=== PATIENT | female | born 1950 | race Caucasian/White ===

== ENCOUNTER → 2017-01-31 | Outpatient (CLI) | payer MEDICARE, BC ==
[~2017-01-31] MED LIST: AMBIEN DPS5 MG PO; ATARAX-DPS10 MG PO; ATIVAN DPS2 MG/ML IV; BENADRYL-DPS50 MG PO; BENTYL-DPS10 MG PO; BENZONATATE200 MG PO; CARAFATE DPS1 GM PO; CIPRO DPS250 MG PO; COLACE-DPS100 MG PO; DUONEB DPS3 ML IH; ELAVIL-DPS50 MG PO; FLAGYL-DPS500 MG PO; FOSAMAX70 MG PO; HEPARIN10 UNITS/M IV; HEPARIN5000 UNITS SQ; HYDROXYZINE HCL10 MG PO; KCL IV; MAALOX DPS30 ML PO; MERREM500 MG IV; MORPHINE2 MG/ML IV; NITROSTAT0.4 MG SL; NORCO 5-325 TA1 EACH PO; NORMAL SALINE F30 ML IV; NORMAL SALINE FL5 ML IV; NORMAL SALINE IV; NUBAIN IV; OXY-CONTIN10 MG PO; PEPCID DPS20 MG PO; PERCOCET 5-3251 EACH PO; PHENERGAN DPS25 MG PO; PHENERGAN25 MG/1 M1 IV; PHENERGAN6.25 MG/5 IV; PROCRIT40000 UNIT SQ; PROTONIX IV40 MG IV; PROTONIX40 MG PO; REGLAN DPS5 MG PO; REGLAN INJ10 MG/2 ML IV; REGLAN10 MG IV; ROCALTROL DP0.25 MCG PO; SOD BICARB TAB650 MG PO; SODIUM BIC50 MEQ/50 IV; SYNTHROID DP0.075 MG PO; SYNTHROID112 MCG PO; SYNTHROID75 MCG PO; TYLENOL DPS325 MG PO; ULTRAM DPS50 MG PO; VITAMIN D-32000 UNI1 PO; ZOFRAN DPS4 MG/2 ML IV; ZOFRAN ODT4 MG PO; ZOFRAN4 MG PO; [UNRECOGNIZED DRUG - OTHER] IV
== END | disposition home or self-care (01) ==
LOC: PTH.S 01-29 16:00
DX: R80.9 Proteinuria, unspecified (principal)

== ENCOUNTER 2017-03-07 14:15 | Emergency (ER) | payer MEDICARE, BC ==
[~2017-03-07 14:15] MED LIST changes: -ATIVAN DPS2 MG/ML IV; -BENADRYL-DPS50 MG PO; -BENTYL-DPS10 MG PO; -COLACE-DPS100 MG PO; -DUONEB DPS3 ML IH; -HEPARIN10 UNITS/M IV; -HEPARIN5000 UNITS SQ; -HYDROXYZINE HCL10 MG PO; -KCL IV; -MAALOX DPS30 ML PO; -MERREM500 MG IV; -MORPHINE2 MG/ML IV; -NITROSTAT0.4 MG SL; -NORMAL SALINE F30 ML IV; -NORMAL SALINE FL5 ML IV; -NORMAL SALINE IV; -NUBAIN IV; -OXY-CONTIN10 MG PO; -PEPCID DPS20 MG PO; -PERCOCET 5-3251 EACH PO; -PHENERGAN DPS25 MG PO; -PHENERGAN25 MG/1 M1 IV; -PHENERGAN6.25 MG/5 IV; -PROCRIT40000 UNIT SQ; -PROTONIX IV40 MG IV; -REGLAN10 MG IV; -SODIUM BIC50 MEQ/50 IV; -SYNTHROID75 MCG PO; -ULTRAM DPS50 MG PO; -ZOFRAN DPS4 MG/2 ML IV; -ZOFRAN ODT4 MG PO
[2017-03-13] MEDS ORDERED: PEPCID DPS20 MG PO (11:43)
[2017-03-13] MEDS ORDERED: DUONEB DPS3 ML IH (11:44)
[2017-03-13] MEDS ORDERED: PROCRIT40000 UNIT SQ (11:45)
[2017-03-13] MEDS ORDERED: MERREM500 MG IV (11:46)
[2017-03-13] MEDS ORDERED: SODIUM BIC50 MEQ/50 IV (11:47)
[2017-03-13] MEDS ORDERED: BENADRYL-DPS50 MG PO (11:48)
[2017-03-13] MEDS ORDERED: PHENERGAN6.25 MG/5 IV (11:50)
[2017-03-13] MEDS ORDERED: MORPHINE2 MG/ML IV (11:52)
[2017-03-13] MEDS ORDERED: NORMAL SALINE F30 ML IV (11:52)
--- NOTE | 2017-03-20 18:03 | ER ---
ADMIT: 03/07/2017 RM/LOC: ER [facility] MR#: [id number] [address] [address] [place] [address] Emergency Room Report SEX: F AGE: 66 : 1950 DATE: 03/07/2017 ADDENDUM: Overall findings, the patient has anemia and has bronchitis. DISPOSITION: Told her to push fluids. Rest and follow up with Dr. Nixon if she worsens. EULALIO Cannon / Rony Andres MD / clem JOB #: [id number] CC: Gabriele Corea MD, Attending Physician Daniela Nixon MD, Family Physician
[2017-05-11] MEDS ORDERED: PROTONIX IV40 MG IV (14:46)
[2017-05-11] MEDS ORDERED: AMBIEN DPS5 MG PO (14:46)
[2017-05-11] MEDS ORDERED: NORMAL SALINE FL5 ML IV (14:47)
[2017-05-11] MEDS ORDERED: HEPARIN5000 UNITS SQ (14:47)
[2017-05-11] MEDS ORDERED: COLACE-DPS100 MG PO (14:48)
[2017-05-11] MEDS ORDERED: PERCOCET 5-3251 EACH PO (14:48)
[2017-05-11] MEDS ORDERED: MAALOX DPS30 ML PO (14:48)
[2017-05-11] MEDS ORDERED: TYLENOL DPS325 MG PO (14:49)
[2017-05-11] MEDS ORDERED: NUBAIN IV (14:49)
[2017-05-11] MEDS ORDERED: NITROSTAT0.4 MG SL (14:49)
[2017-05-11] MEDS ORDERED: NORMAL SALINE IV (14:51)
[2017-05-11] MEDS ORDERED: PHENERGAN25 MG/1 M1 IV (14:51)
[2017-05-11] MEDS ORDERED: ZOFRAN DPS4 MG/2 ML IV (14:51)
[2017-07-06] MEDS ORDERED: HEPARIN10 UNITS/M IV (10:03)
[2017-07-06] MEDS ORDERED: KCL IV (10:06)
[2017-07-06] MEDS ORDERED: ATIVAN DPS2 MG/ML IV (10:07)
[2017-07-06] MEDS ORDERED: REGLAN10 MG IV (10:10)
[2017-07-16] MEDS ORDERED: SYNTHROID75 MCG PO (08:42)
[2017-07-16] MEDS ORDERED: HYDROXYZINE HCL10 MG PO (08:44)
[2017-07-16] MEDS ORDERED: ROCALTROL DP0.25 MCG PO (08:44)
[2017-07-16] MEDS ORDERED: PHENERGAN DPS25 MG PO (08:45)
[2017-07-16] MEDS ORDERED: ULTRAM DPS50 MG PO (08:45)
[2017-07-16] MEDS ORDERED: BENZONATATE200 MG PO (08:45)
[2017-07-16] MEDS ORDERED: PROTONIX40 MG PO (08:45)
[2017-07-16] MEDS ORDERED: REGLAN DPS5 MG PO (08:46)
[2017-07-16] MEDS ORDERED: VITAMIN D-32000 UNI1 PO (08:46)
[2017-07-16] MEDS ORDERED: TYLENOL DPS325 MG PO (08:46)
[2017-07-16] MEDS ORDERED: COLACE-DPS100 MG PO (08:46)
[2017-07-16] MEDS ORDERED: OXY-CONTIN10 MG PO (08:47)
[2017-07-16] MEDS ORDERED: BENTYL-DPS10 MG PO (08:47)
[2017-07-16] MEDS ORDERED: ZOFRAN ODT4 MG PO (08:47)
== END 2017-03-07 16:20 | disposition home or self-care (01) ==
LOC: ER 14:15
DX: J40 Bronchitis, not specified as acute or chronic (principal); D64.9 Anemia, unspecified; E03.9 Hypothyroidism, unspecified; Z90.710 Acquired absence of both cervix and uterus; Z79.899 Other long term (current) drug therapy; Z88.0 Allergy status to penicillin; Z88.8 Allergy status to other drugs, medicaments and biological substances

== ENCOUNTER 2017-03-09 14:54 | Inpatient (IN) | payer MEDICARE, BC ==
[~2017-03-09] VITALS: Ht 154.9 cm; Wt 57.8 kg
[2017-03-13] MEDS ORDERED: PEPCID DPS20 MG PO (11:43)
[2017-03-13] MEDS ORDERED: DUONEB DPS3 ML IH (11:44)
[2017-03-13] MEDS ORDERED: PROCRIT40000 UNIT SQ (11:45)
[2017-03-13] MEDS ORDERED: MERREM500 MG IV (11:46)
[2017-03-13] MEDS ORDERED: SODIUM BIC50 MEQ/50 IV (11:47)
[2017-03-13] MEDS ORDERED: BENADRYL-DPS50 MG PO (11:48)
[2017-03-13] MEDS ORDERED: PHENERGAN6.25 MG/5 IV (11:50)
[2017-03-13] MEDS ORDERED: MORPHINE2 MG/ML IV (11:52)
[2017-03-13] MEDS ORDERED: NORMAL SALINE F30 ML IV (11:52)
--- NOTE | 2017-03-16 10:43 | CO ---
ADMIT: 03/09/2017 RM/LOC: 409 [facility] MR#: [id number] [address] [address] [place] [address] Consultation SEX: F AGE: 66 : 1950 DATE OF CONSULTATION: 03/10/2017 ATTENDING PHYSICIAN: Daniela Nixon CONSULTING PHYSICIAN: Per Wilcox MD REASON FOR CONSULTATION: Acute kidney injury on chronic kidney disease, stage 4. HISTORY OF PRESENT ILLNESS: The patient is a pleasant 66-year-old female, who has a history of chronic kidney disease stage 4. Baseline creatinine has been around 1.9 to 2.0. She is admitted to the hospital with sepsis, pancreatitis, and acute kidney injury. She reports feeling unwell for about the last couple of months. Initially, she had symptoms consistent with upper respiratory tract infection, but for the last few days, had nausea, vomiting, and decreased oral intake. She feels very weak. She was noted to have an acute kidney injury with a creatinine of around 3.4 when she came through the emergency room last night. She used to follow up with me, but reports that she is seeing Dr. Brooks in [place] and is following up with him according to her primary care's recommendations. Otherwise, she denies any urinary complaints. She feels somewhat better compared to yesterday. Denies any chest pain. Her breathing is somewhat labored. She feels very weak. Mood is not great. She has some symptoms of depression that includes insomnia, lack of appetite and energy. REVIEW OF SYSTEMS: A complete review of systems is negative in detail except as mentioned in history of present illness above. PAST MEDICAL HISTORY: 1. Hypertension. 2. Diverticulosis. 3. Diverticulitis. 4. Myelodysplastic disorder and anemia. 5. Migraines. 6. GERD. 7. Asthma. 8. Cholecystectomy. 9. Chronic kidney disease stage 4 with a baseline creatinine of around 1.9 to 2.0. 10.Carpal tunnel syndrome. 11.Tonsillectomy. 12.Adenoidectomy. 13.Hypothyroidism. ALLERGIES: PENICILLINS, IODINE. MEDICATIONS: Reviewed and addressed in the chart. SOCIAL HISTORY: Lives at home. No tobacco, alcohol, or recreational drug ADMIT: 03/09/2017 RM/LOC: 409 [facility] MR#: [id number] [address] [address] [place] [address] Consultation SEX: F AGE: 66 : 1950 use. FAMILY HISTORY: Mother has end-stage renal disease, on hemodialysis. PHYSICAL EXAMINATION: VITAL SIGNS: Temperature 98.5 Fahrenheit, pulse 81, blood pressure 99/50, saturating 97% on room air. GENERAL: She is ill appearing. HEENT: Head is nontraumatic and normocephalic. Pale conjunctivae. Dry mucosa. CHEST: Clear to auscultation. CVS: Regular rate and rhythm. S1 and S2 heard. No rubs, murmurs, or gallops. ABDOMEN: Soft. She has tenderness in the epigastric area. EXTREMITIES: No edema. NEUROLOGIC: She is oriented. Able to move all her extremities. LABORATORY DATA: Reviewed. BMP with sodium 137, potassium 3.6, CO2 of 8, creatinine 2.6, it was elevated to 3.4 yesterday. Hemoglobin is 8.7. Calcium 6.8, albumin 3.0. Urinalysis with 1+ protein, trace blood, negative leukocyte esterase. She did have hyaline and granular casts in her urine. ASSESSMENT AND PLAN: 1. Acute kidney injury on chronic kidney disease, stage 4-this is secondary to ischemic acute tubular necrosis. 2. Metabolic acidosis-at least in part with her decreased sodium bicarbonate. She could have a superimposed respiratory alkalosis as well. I will change her to IV bicarbonate containing fluids for the time being and check a venous blood gas in the morning. 3. Renal osteodystrophy-continue calcitriol 0.25 mcg a day. 4. Anemia/myelodysplastic syndrome-she is being followed by Hematology, and it appears they been consulted already. 5. I will follow this patient for her acute renal needs during this hospitalization, and hand over her care to Dr. Brooks up on dismissal. Please do not hesitate to contact me with any questions. Per Wilcox MD/ clem JOB #: [id number] CC: Daniela Nixon, Attending Physician Daniela Nixon, Family Physician
--- NOTE | 2017-03-20 17:58 | ER ---
ADMIT: 03/09/2017 RM/LOC: 409 [facility] MR#: [id number] [address] [address] [place] [address] Emergency Room Report SEX: F AGE: 66 : 1950 CORRECTED: 03/11/2017 0533 DJS DATE: 03/09/2017 CHIEF COMPLAINT: Vomiting. HISTORY OF PRESENT ILLNESS: This is a pleasant 66-year-old female, who presents to the ER complaining of nausea and vomiting. States she was seen by Dr. Nixon last week primarily for a cough. States this is not improving, was into the ER again this past weekend with similar complaints of cough. She did have some basic labs drawn as well as a chest x-ray, which were unremarkable. States today she has been experiencing increased nausea and vomiting and did have an episode of diarrhea while in the department today. Admits to fever as well as a headache. Thinks the headache is likely secondary to her migraine headaches. Denies any blood in her vomit. Does have some lower abdominal pain. PAST MEDICAL HISTORY: Significant for pancreatitis, hypertension, myelodysplastic disorder, osteoarthritis, anemia, diverticulitis, hypothyroidism, migraine headache disorder, chronic kidney disease, GERD, and secondary hypoparathyroidism. PAST SURGICAL HISTORY: Cholecystectomy, tonsillectomy and adenoidectomy, tubal ligation, colonoscopy. MEDICATIONS: She is on an extensive list of medications. Please see the chart for complete list. ALLERGIES: TO PENICILLIN AND IODINE. SOCIAL HISTORY: She is a nonsmoker. Denies any drug or alcohol use. COURSE IN THE EMERGENCY ROOM: The patient was seen and examined. PHYSICAL EXAMINATION: VITAL SIGNS: She is afebrile. GENERAL: In no acute distress. NECK: Soft and supple. RESPIRATORY: Clear bilaterally. No wheezes, rhonchi, or rales. HEART: Regular rate and rhythm. No murmurs, gallops, or rubs. ABDOMEN: She does have some lower abdominal tenderness. No rebound or guarding. No McBurney's point tenderness. SKIN: Warm and dry. No rash. EXTREMITIES: No pedal edema. NEURO: She is alert, oriented, appropriate with exam. Did do sepsis routine on her today as well as getting a lipase significant for white count 13.6, hemoglobin 11.6, hematocrit 35.8, and platelets 126. Sodium 137, potassium 4.2, CO2 of 9, BUN 52, glucose 136, creatinine 3.4, phosphorus 6.2, lipase 512, mag 3.2, and calcium 8.3. CK 17, cardiac enzymes negative. ADMIT: 03/09/2017 RM/LOC: 409 [facility] MR#: [id number] [address] [place] [id number] [facility] [place] [address] Emergency Room Report SEX: F AGE: 66 : 1950 Lactic acid 1.2. Procalcitonin greater than 136. PT 10.5, INR 1.01, and PTT 35.5. O positive blood type. Urine shows 1+ protein, trace blood, hyaline and granular casting. No signs of acute infection. EKG shows sinus tachycardia, rate 101, no ST-T or Q wave abnormalities. Given her procalcitonin, elevated white count and tachycardia, I did give her first dose of antibiotic in department tonight vancomycin and meropenem. I did phone Dr. Paez, made him aware of the patient. I spoke with Dr. Pinon, the resident on-call for him as well. The patient will be admitted for further evaluation and management at this time. IMPRESSION: 1. Pancreatitis. 2. Chronic kidney disease. 3. Abdominal pain. 4. Nausea and vomiting. 5. Diarrhea. 6. Myelodysplastic disorder. 7. History of diverticulitis. 8. Secondary hypoparathyroidism. 9. Gastroesophageal reflux disease. DISPOSITION: The patient will be admitted by Dr. Paez for Dr. Nixon for further evaluation and management. She was discharged to the floor in guarded condition. EULALIO Bryant / Juliocesar Norman MD / norbertol JOB #: [id number] CC: Daniela Nixon MD, Attending Physician Daniela Nixon MD, Family Physician CORRECTED: 03/11/2017 0533 RANDI
--- NOTE | 2017-04-05 07:27 | HP ---
ADMIT: 03/09/2017 RM/LOC: 409 [facility] MR#: [id number] [address] [address] [place] [address] History and Physical SEX: F AGE: 66 : 1950 DATE OF SERVICE: CHIEF COMPLAINT: Nausea and vomiting. HISTORY OF PRESENT ILLNESS: This is a 66-year-old female with a complicated medical history, which includes stage 4 kidney disease, myelodysplastic syndrome, and a history of pancreatitis. She states that she has been battling a cough for about the last two months. However, over the last few days, she suffered some nausea, vomiting, and decreased p.o. intake. She was actually recently in the emergency room over the weekend. Had labs drawn which were about at her baseline. Creatinine of 2.8 up from her baseline of 2, but nothing significant enough to warrant admission into the hospital. She now returns and workup in the ER reveals a bicarb of 9, a creatinine of 3.4, lipase of 512, and procalcitonin greater than 136. She denies any recent fever, but does note that she has hardly eaten anything over the last two days. She even tried to eat some Jell-O that she was throwing up. She states that for chronic kidney disease, she follows with a new heavy duty press operator in [place]. She is being hospitalized for sepsis, pancreatitis, and acute kidney injury superimposed on chronic kidney disease. PAST MEDICAL HISTORY: CKD stage 4, esophageal reflux, secondary hypoparathyroidism, hypothyroidism, history of metabolic acidosis, chronic migraine, myelodysplastic syndrome, chronic anemia, generalized osteoarthritis, osteoporosis, vitamin D and B12 deficiency. PAST SURGICAL HISTORY: Cholecystectomy, tonsillectomy and adenoidectomy, tubal ligation, and colonoscopy in 2009. ALLERGIES: INCLUDE PENICILLIN AND IODINE. FAMILY HISTORY: Father had heart disease and heart attack. Mother with kidney disease, diabetes, asthma, and glaucoma. Sister had breast cancer. SOCIAL HISTORY: The patient has never smoked. Denies alcohol or drug abuse. Lives with her . Does not work outside the home. REVIEW OF SYSTEMS: GENERAL: The patient states that she has been a little under the weather with her cough, but more significantly with nausea, vomiting, and decreased p.o. intake over the last few days. She states she is very thirsty, that her throat is dry, but she is currently denying any headache or reflux symptoms. Denies chest pain, shortness of breath. No dizziness. Also endorses some chronic pain in her neck, shoulders, hips, and knees. PHYSICAL EXAMINATION: VITAL SIGNS: Temp 97.8, pulse 93, respirations 20, blood pressure 126/51, and O2 saturation 100% on room air. GENERAL: The patient is awake, alert, oriented, lying in bed, conversational. HEENT: Her lips and mouth are dry. She has poor dentition. Mucous membranes are dry. ADMIT: 03/09/2017 RM/LOC: 409 [facility] MR#: [id number] [address] [place] [id number] [facility] [place] [address] History and Physical SEX: F AGE: 66 : 1950 NECK: No JVD. Supple. No lymphadenopathy. HEART: Regular rhythm and rate. No murmurs, rubs, or gallops. LUNGS: Clear to auscultation bilaterally. ABDOMEN: Soft, but tender to palpation in the epigastric area. No obvious splenomegaly. Normoactive bowel sounds. EXTREMITIES: Show no edema in the lower limbs. She does have some increased skin turgor but normal cap refill. LABS AND X-RAY: White count is 13.6, hemoglobin 11.6, and platelets are 126. CMP shows a chloride of 111, bicarb of 9, BUN of 52, creatinine 3.4 up from baseline of 2, phosphorus is elevated at 6.2, lipase is elevated at 512, magnesium elevated at 3.2. Her anion gap is 21. CK-MB and troponin are normal. Lactic acid is 1.2, with a procalcitonin of greater than 136. PT and INR are normal. UA is hazy with 1+ protein and trace blood, but no leuk esterase or white blood cells. She does have hyaline and granular casts. Her CT of the abdomen and pelvis is essentially read out as negative with a stable density in the distal common duct and a stable nodule in the superior pole of the right kidney, but no other acute findings. ASSESSMENT: 1. Sepsis. 2. Acute pancreatitis. 3. Acute kidney injury on chronic kidney disease, stage 4. 4. History of metabolic acidosis, currently with a bicarb of 9. 5. Myelodysplastic syndrome with chronic anemia. 6. Osteoarthritis. 7. Gastroesophageal reflux disease. 8. Hypothyroidism. PLAN: The patient was started on Vanc and Merrem in the emergency room for her sepsis and pancreatitis. There is no other clear etiology, so we will continue her on these antibiotics. She was given a total of 1 L of IV fluid along with the fluid in her antibiotics. We will continue with gentle fluid repletion at 150 mL normal saline an hour. We appreciate a Nephrology consult for fluid management in this complicated patient with AKA on CKD in the setting of sepsis and pancreatitis. We will also recheck her labs, lactic acid, and procalcitonin in the morning. She does have p.r.n. pain medication and nausea medication should she need it. Glenn Pinon MD Resident / Daniela Nixon MD / norbertol JOB #: [id number] CC: Daniela Nixon, Attending Physician Daniela Nixon, Family Physician
--- NOTE | 2017-04-05 07:27 | DS ---
ADMIT: 03/09/2017 RM/LOC: 409 [facility] MR#: [id number] [address] [address] [place] [address] Discharge Summary SEX: F AGE: 66 : 1950 ADMISSION DATE: 03/09/2017 DISCHARGE DATE: 03/12/2017 CONSULTATIONS: 1. Per Wilcox MD with Nephrology. 2. Mary Ace MD with Oncology. DISCHARGE DIAGNOSES: 1. Sepsis due to pancreatitis. 2. Common bile duct dilation and 3 mm density. 3. Acute kidney injury on CKD (chronic kidney disease) grade 4. 4. Metabolic acidosis. 5. Myelodysplastic syndrome, pancytopenia with anemia. 6. Hypokalemia. 7. Hypothyroidism. BRIEF HISTORY OF PRESENT ILLNESS: The patient is a 66-year-old female with complicated medical history including stage IV CKD, mild dysplastic syndrome and a history of pancreatitis. Over the last few days, she has had nausea, vomiting, abdominal pain, and decreased p.o. intake. She had presented to the emergency room a few days ago with no major changes in her baseline labs other than a creatinine of 2.8, up from her baseline of 2 and was sent home. She returns again today with the same complaints but worse and continued anorexia due to her nausea and vomiting. Labs on this ER visit revealed bicarb of 9, creatinine of 3.4, lipase of 512, procalcitonin of greater than 136. She had been in the emergency room a few months ago with a very similar presentation. CT scan in the emergency room shows no acute findings but does again show a 3 mm density in the common bile duct that is stable from previous imaging. She is admitted for sepsis, pancreatitis, acute kidney injury on CKD as well as myelodysplastic syndrome, hypothyroidism and her other chronic illnesses. She was started on Vanco and Merrem due to penicillin allergy, in the emergency room, gently fluid rehydrated given her chronic kidney disease and started on pain and nausea medications. HOSPITAL COURSE: Nephrology who is familiar with the patient, was consulted for help in fluid management in this patient. They adjusted her fluids to half-normal saline plus bicarb and continued to follow her creatinine which steadily declined back to baseline throughout hospitalization. Oncology was consulted due to her history of myelodysplastic syndrome. Her hemoglobin did trend down into the low 7s, so she was transfused 1 unit of packed red blood cells with an appropriate response. She is also on Procrit that is managed by them and that was administered during this hospitalization as well. Over the course of two days, the patient's nausea and abdominal pain were not significantly improving and the source of the pancreatitis was thought to be due to this previously uninvestigated 3 mm density in the common bile duct. It was determined that she likely needed an ERCP, however this facility does not offer gastroenterology services and the patient required transfer to a secondary hospital for higher level of care and Gastroenterology Services for possibly ERCP. On the , Dr. Son at [facility] accepted transfer ADMIT: 03/09/2017 RM/LOC: 409 [facility] MR#: [id number] [address] [place] [id number] [facility] [place] [address] Discharge Summary SEX: F AGE: 66 : 1950 of the patient for possible ERCP. The patient was transferred in stable condition. Of note, vancomycin was stopped before transfer. DISCHARGE MEDICATIONS: 1. Atarax 10 mg nightly. 2. Pepcid 20 mg daily. 3. Protonix 40 mg daily. 4. Rocaltrol 0.25 mcg daily. 5. Synthroid 75 mcg daily. 6. DuoNebs p.r.n. 7. Procrit weekly. 8. Merrem 500 mg q.12. 9. Half normal saline with sodium bicarb. 10.Benadryl 50 mg at bedtime p.r.n. 11.[place] 5/325 q.6 hours p.r.n. 12.Tessalon Perles 200 mg q.8h p.r.n. 13.Morphine 2 mg q.2 hours p.r.n. as well as p.r.n. Zofran, Reglan and Phenergan for nausea. DISCHARGE INSTRUCTIONS: The patient was discharged on n.p.o. diet. She was on room air oxygen. She is to follow up with Dr. Nixon when she returns from her hospital stay at [facility]. Glenn Pinon MD Resident / Daniela Nixon MD / vdg JOB #: [id number] CC: Daniela Nixon MD, Attending Physician Daniela Nixon MD, Family Physician
[2017-05-11] MEDS ORDERED: PROTONIX IV40 MG IV (14:46)
[2017-05-11] MEDS ORDERED: AMBIEN DPS5 MG PO (14:46)
[2017-05-11] MEDS ORDERED: HEPARIN5000 UNITS SQ (14:47)
[2017-05-11] MEDS ORDERED: NORMAL SALINE FL5 ML IV (14:47)
[2017-05-11] MEDS ORDERED: MAALOX DPS30 ML PO (14:48)
[2017-05-11] MEDS ORDERED: PERCOCET 5-3251 EACH PO (14:48)
[2017-05-11] MEDS ORDERED: COLACE-DPS100 MG PO (14:48)
[2017-05-11] MEDS ORDERED: NITROSTAT0.4 MG SL (14:49)
[2017-05-11] MEDS ORDERED: TYLENOL DPS325 MG PO (14:49)
[2017-05-11] MEDS ORDERED: NUBAIN IV (14:49)
[2017-05-11] MEDS ORDERED: NORMAL SALINE IV (14:51)
[2017-05-11] MEDS ORDERED: ZOFRAN DPS4 MG/2 ML IV (14:51)
[2017-05-11] MEDS ORDERED: PHENERGAN25 MG/1 M1 IV (14:51)
[2017-07-06] MEDS ORDERED: HEPARIN10 UNITS/M IV (10:03)
[2017-07-06] MEDS ORDERED: KCL IV (10:06)
[2017-07-06] MEDS ORDERED: ATIVAN DPS2 MG/ML IV (10:07)
[2017-07-06] MEDS ORDERED: REGLAN10 MG IV (10:10)
[2017-07-16] MEDS ORDERED: SYNTHROID75 MCG PO (08:42)
[2017-07-16] MEDS ORDERED: HYDROXYZINE HCL10 MG PO (08:44)
[2017-07-16] MEDS ORDERED: ROCALTROL DP0.25 MCG PO (08:44)
[2017-07-16] MEDS ORDERED: BENZONATATE200 MG PO (08:45)
[2017-07-16] MEDS ORDERED: ULTRAM DPS50 MG PO (08:45)
[2017-07-16] MEDS ORDERED: PHENERGAN DPS25 MG PO (08:45)
[2017-07-16] MEDS ORDERED: PROTONIX40 MG PO (08:45)
[2017-07-16] MEDS ORDERED: TYLENOL DPS325 MG PO (08:46)
[2017-07-16] MEDS ORDERED: COLACE-DPS100 MG PO (08:46)
[2017-07-16] MEDS ORDERED: REGLAN DPS5 MG PO (08:46)
[2017-07-16] MEDS ORDERED: VITAMIN D-32000 UNI1 PO (08:46)
[2017-07-16] MEDS ORDERED: OXY-CONTIN10 MG PO (08:47)
[2017-07-16] MEDS ORDERED: ZOFRAN ODT4 MG PO (08:47)
[2017-07-16] MEDS ORDERED: BENTYL-DPS10 MG PO (08:47)
== END 2017-03-12 12:34 | disposition short-term general hospital (02) | DRG 871 ==
LOC: ER 14:54 → 4PCU 19:17
PROVIDERS: ADMIT Family Medicine
PROC: 30233N1 Transfusion of Nonautologous Red Blood Cells into Peripheral Vein, Percutaneous Approach (ICD-10-PCS; principal; 2017-03-11)
DX: A41.9 Sepsis, unspecified organism (principal); K85.90 Acute pancreatitis without necrosis or infection, unspecified; N17.9 Acute kidney failure, unspecified; E87.2 Acidosis; D61.818 Other pancytopenia; N18.4 Chronic kidney disease, stage 4 (severe); C94.6 Myelodysplastic disease, not elsewhere classified; K83.8 Other specified diseases of biliary tract; N25.0 Renal osteodystrophy; E86.0 Dehydration; R11.2 Nausea with vomiting, unspecified; R19.7 Diarrhea, unspecified; G43.909 Migraine, unspecified, not intractable, without status migrainosus; M19.90 Unspecified osteoarthritis, unspecified site; K57.90 Diverticulosis of intestine, part unspecified, without perforation or abscess without bleeding; E03.9 Hypothyroidism, unspecified; I12.9 Hypertensive chronic kidney disease with stage 1 through stage 4 chronic kidney disease, or unspecified chronic kidney disease; K21.9 Gastro-esophageal reflux disease without esophagitis; E20.9 Hypoparathyroidism, unspecified; M81.0 Age-related osteoporosis without current pathological fracture; E55.9 Vitamin D deficiency, unspecified; E87.6 Hypokalemia

== ENCOUNTER 2017-03-18 15:20 | Emergency (ER) | payer MEDICARE, BC ==
[~2017-03-18 15:20] MED LIST changes: +BENADRYL-DPS50 MG PO; +DUONEB DPS3 ML IH; +MERREM500 MG IV; +MORPHINE2 MG/ML IV; +NORMAL SALINE F30 ML IV; +PEPCID DPS20 MG PO; +PHENERGAN6.25 MG/5 IV; +PROCRIT40000 UNIT SQ; +SODIUM BIC50 MEQ/50 IV
--- NOTE | 2017-03-24 14:24 | ER ---
ADMIT: 03/18/2017 RM/LOC: ER [facility] MR#: [id number] [address] [address] [place], [place] [address] Emergency Room Report SEX: F AGE: 66 : 1950 DATE: 03/18/2017 HISTORY OF PRESENT ILLNESS: The patient is a 66-year-old female, complaining of abdominal pain. She has just been diagnosed as having pancreatitis. She was admitted with common bile duct dilatation and referred for ERCP on 03/12/2017. She was released very recently and presents now to the emergency room complaining of right upper quadrant abdominal pain. PAST MEDICAL HISTORY: Quite complicated. She has had pancreatitis, osteoarthritis, diabetes type 2, hypertension, GERD, hypoparathyroidism, asthma, glaucoma, myelodysplastic syndrome, stage 4 kidney disease, diverticulosis, and hypokalemia. PAST SURGICAL HISTORY: She has had a cholecystectomy, colonoscopy in 2009, tubal ligation, and tonsillectomy. MEDICATIONS: Found in the T-sheet. ALLERGIES: TO IODINE AND PENICILLIN. PHYSICAL EXAMINATION: GENERAL: Alert and oriented. Very pleasant lady. VITAL SIGNS: Blood pressure 154/74, heart rate is 79, respirations 14, temp is 99.6, and O2 sats 100%. She is alert, family is at bedside. HEENT: Normal inspection with the oral mucosa quite dry. NECK: Supple. RESPIRATIONS: No distress. ABDOMEN: She does have right upper quadrant abdominal pain, tenderness, bruising in the area with the ERCP took place. BACK: Normal inspection. SKIN: Good color, otherwise. LABORATORY DATA: WBCs within normal limits. Hemoglobin is 8.4. She states that it was 9 when she was in [place]. Her hematocrit is 26.5, with platelets of 65. Her glucose is 101, creatinine is 1.7, calcium 7.9, amylase 223 with a normal lipase. Urine shows hyaline 3, protein 1+. 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 ADMIT: 03/18/2017 RM/LOC: [facility] MR#: [id number] [address] [address] [place] [address] Emergency Room Report SEX: F AGE: 66 : 1950 CLINICAL IMPRESSION: 1. Anemia of chronic kidney disease. 2. Abdominal pain, right upper quadrant. 3. Chronic pancreatitis. She was given Dilaudid, which did not quite take care of her pain. I consulted with Dr. Andres based on the examination of her labs and her presentation, we are going to go ahead and discharge her home with a close followup. She says she has an appointment to go see her provider next week and she is going to have labs repeated. She will be given Percocet for home use. She says her hydrocodones are not really doing much for her. She is to follow up with her primary provider and continue her other medications. EULALIO Maldonado / Rony Andres MD / clem JOB #: [id number] CC: Rony Andres MD, Attending Physician Daniela Nixon MD, Family Physician
[2017-05-11] MEDS ORDERED: PROTONIX IV40 MG IV (14:46)
[2017-05-11] MEDS ORDERED: AMBIEN DPS5 MG PO (14:46)
[2017-05-11] MEDS ORDERED: NORMAL SALINE FL5 ML IV (14:47)
[2017-05-11] MEDS ORDERED: HEPARIN5000 UNITS SQ (14:47)
[2017-05-11] MEDS ORDERED: PERCOCET 5-3251 EACH PO (14:48)
[2017-05-11] MEDS ORDERED: MAALOX DPS30 ML PO (14:48)
[2017-05-11] MEDS ORDERED: COLACE-DPS100 MG PO (14:48)
[2017-05-11] MEDS ORDERED: NUBAIN IV (14:49)
[2017-05-11] MEDS ORDERED: NITROSTAT0.4 MG SL (14:49)
[2017-05-11] MEDS ORDERED: TYLENOL DPS325 MG PO (14:49)
[2017-05-11] MEDS ORDERED: PHENERGAN25 MG/1 M1 IV (14:51)
[2017-05-11] MEDS ORDERED: NORMAL SALINE IV (14:51)
[2017-05-11] MEDS ORDERED: ZOFRAN DPS4 MG/2 ML IV (14:51)
[2017-07-06] MEDS ORDERED: HEPARIN10 UNITS/M IV (10:03)
[2017-07-06] MEDS ORDERED: KCL IV (10:06)
[2017-07-06] MEDS ORDERED: ATIVAN DPS2 MG/ML IV (10:07)
[2017-07-06] MEDS ORDERED: REGLAN10 MG IV (10:10)
[2017-07-16] MEDS ORDERED: SYNTHROID75 MCG PO (08:42)
[2017-07-16] MEDS ORDERED: HYDROXYZINE HCL10 MG PO (08:44)
[2017-07-16] MEDS ORDERED: ROCALTROL DP0.25 MCG PO (08:44)
[2017-07-16] MEDS ORDERED: ULTRAM DPS50 MG PO (08:45)
[2017-07-16] MEDS ORDERED: PROTONIX40 MG PO (08:45)
[2017-07-16] MEDS ORDERED: PHENERGAN DPS25 MG PO (08:45)
[2017-07-16] MEDS ORDERED: BENZONATATE200 MG PO (08:45)
[2017-07-16] MEDS ORDERED: TYLENOL DPS325 MG PO (08:46)
[2017-07-16] MEDS ORDERED: COLACE-DPS100 MG PO (08:46)
[2017-07-16] MEDS ORDERED: REGLAN DPS5 MG PO (08:46)
[2017-07-16] MEDS ORDERED: VITAMIN D-32000 UNI1 PO (08:46)
[2017-07-16] MEDS ORDERED: OXY-CONTIN10 MG PO (08:47)
[2017-07-16] MEDS ORDERED: BENTYL-DPS10 MG PO (08:47)
[2017-07-16] MEDS ORDERED: ZOFRAN ODT4 MG PO (08:47)
== END 2017-03-18 19:08 | disposition home or self-care (01) ==
LOC: ER 15:20
DX: R10.11 Right upper quadrant pain (principal); K86.1 Other chronic pancreatitis; E11.22 Type 2 diabetes mellitus with diabetic chronic kidney disease; N18.4 Chronic kidney disease, stage 4 (severe); D63.1 Anemia in chronic kidney disease; K21.9 Gastro-esophageal reflux disease without esophagitis; J45.909 Unspecified asthma, uncomplicated; Z90.49 Acquired absence of other specified parts of digestive tract; Z88.0 Allergy status to penicillin; Z79.899 Other long term (current) drug therapy

== ENCOUNTER 2017-03-19 12:10 | Emergency (ER) | payer MEDICARE, BC ==
--- NOTE | 2017-03-25 09:21 | ER ---
ADMIT: 03/19/2017 RM/LOC: ER [facility] MR#: [id number] [address] [address] [place] [address] Emergency Room Report SEX: F AGE: 66 : 1950 DATE: 03/19/2017 BRIEF ADDENDUM: Please see my T-sheet for complete review of systems, past medical history, and physical exam. CHIEF COMPLAINT: Abdominal pain. HISTORY OF PRESENT ILLNESS: This is a 66-year-old female, who presents with a history of chronic abdominal pain. She was recently hospitalized for sepsis, pancreatitis, subsequently transferred to [facility] in [place] where she underwent ERCP with stent placement. She states she was discharged on Wednesday and was doing well until this morning. She states she was unable to eat this morning, had sharp stabbing pain across her entire upper abdomen. Admits to fever, chills, nausea, vomiting, diarrhea, loss of appetite. Rates the pain as a 10/10, worse with movement and food, relieved by nothing at this point. She was actually seen yesterday in the ER with similar complaints. They did do laboratory studies on her, unremarkable, unchanged with her chronic anemia. She was given medications for pain and instructions to follow up with the primary care provider. She returns today saying the pain is uncontrolled with her medicine. She is unable to the eat. Has not phoned her primary care's office. She states she called their office but they referred her back to the ER. PAST MEDICAL HISTORY: 1. Pancreatitis. 2. Anemia. 3. Myelodysplastic disorder. 4. Chronic kidney disease. PHYSICAL EXAMINATION: GENERAL: The patient was seen and examined. She is afebrile, nontoxic, in no acute distress. LUNGS: No respiratory distress. Breath sounds are equal bilaterally. HEART: Regular rate. No tachycardia. No murmurs, gallops, or rubs. ABDOMEN: Soft. She does have some generalized tenderness. No rebound or guarding. ABDOMEN: Normal bowel sounds. No McBurney's point tenderness. BACK: No CVA tenderness. SKIN: Warm and dry. EXTREMITIES: Nontender. No pedal edema. LABORATORY STUDIES: White count 5.0, hemoglobin 9.0, hematocrit 27.9, platelets 78. Sodium 140, potassium 4.5, BUN 23, glucose 75, and creatinine 1.7, lipase 175, alkaline phosphatase 110, AST 18, ALT 17, bilirubin 0.7. Her abdominal ultrasound is unremarkable and unchanged from previous study. They did visualize the stent. No obvious increased dilatation or obstructive stones. She was given 4 mg ODT of Zofran as well as Dilaudid 1 mg IM. I did reexamine the patient, her abdomen remained soft. She states her pain is much improved. She is comfortable returning home to manage her pain as an outpatient with her prescribed pain medications. I did have a long discussion ADMIT: 03/19/2017 RM/LOC: [facility] MR#: [id number] [address] [place] [phone] [place] [address] Emergency Room Report SEX: F AGE: 66 : 1950 with her that she is to take her pain medications as prescribed. Follow up with her regular doctor. IMPRESSION: 1. Abdominal pain. 2. Nausea and vomiting. 3. Status post ERCP with stent placement. 4. Myelodysplastic disorder. 5. Chronic kidney disease. DISPOSITION: The patient is discharged home to continue her home medications. Reinforced her adherence to her pain medications. Activity as tolerated. Increase fluids. I cautioned her while driving or taking more Tylenol, she can use narcotic pain medications. Follow up Dr. Nixon next week as scheduled. She does have an appointment coming up with her personal care aid to perform the ERCP in [place]. I thought it best she be re-evaluated by him if she continues to have persistent pain. Questions sought and answered to the best of my ability and patient's satisfaction. Discharged home in stable condition. EULALIO Bryant / Rony Andres MD / clem JOB #: [id number] CC: Rony Andres MD, Attending Physician UNKNOWN, Family Physician
[2017-05-11] MEDS ORDERED: AMBIEN DPS5 MG PO (14:46)
[2017-05-11] MEDS ORDERED: PROTONIX IV40 MG IV (14:46)
[2017-05-11] MEDS ORDERED: NORMAL SALINE FL5 ML IV (14:47)
[2017-05-11] MEDS ORDERED: HEPARIN5000 UNITS SQ (14:47)
[2017-05-11] MEDS ORDERED: COLACE-DPS100 MG PO (14:48)
[2017-05-11] MEDS ORDERED: MAALOX DPS30 ML PO (14:48)
[2017-05-11] MEDS ORDERED: PERCOCET 5-3251 EACH PO (14:48)
[2017-05-11] MEDS ORDERED: NUBAIN IV (14:49)
[2017-05-11] MEDS ORDERED: TYLENOL DPS325 MG PO (14:49)
[2017-05-11] MEDS ORDERED: NITROSTAT0.4 MG SL (14:49)
[2017-05-11] MEDS ORDERED: ZOFRAN DPS4 MG/2 ML IV (14:51)
[2017-05-11] MEDS ORDERED: PHENERGAN25 MG/1 M1 IV (14:51)
[2017-05-11] MEDS ORDERED: NORMAL SALINE IV (14:51)
[2017-07-06] MEDS ORDERED: HEPARIN10 UNITS/M IV (10:03)
[2017-07-06] MEDS ORDERED: KCL IV (10:06)
[2017-07-06] MEDS ORDERED: ATIVAN DPS2 MG/ML IV (10:07)
[2017-07-06] MEDS ORDERED: REGLAN10 MG IV (10:10)
[2017-07-16] MEDS ORDERED: SYNTHROID75 MCG PO (08:42)
[2017-07-16] MEDS ORDERED: ROCALTROL DP0.25 MCG PO (08:44)
[2017-07-16] MEDS ORDERED: HYDROXYZINE HCL10 MG PO (08:44)
[2017-07-16] MEDS ORDERED: BENZONATATE200 MG PO (08:45)
[2017-07-16] MEDS ORDERED: PROTONIX40 MG PO (08:45)
[2017-07-16] MEDS ORDERED: PHENERGAN DPS25 MG PO (08:45)
[2017-07-16] MEDS ORDERED: ULTRAM DPS50 MG PO (08:45)
[2017-07-16] MEDS ORDERED: VITAMIN D-32000 UNI1 PO (08:46)
[2017-07-16] MEDS ORDERED: COLACE-DPS100 MG PO (08:46)
[2017-07-16] MEDS ORDERED: REGLAN DPS5 MG PO (08:46)
[2017-07-16] MEDS ORDERED: TYLENOL DPS325 MG PO (08:46)
[2017-07-16] MEDS ORDERED: BENTYL-DPS10 MG PO (08:47)
[2017-07-16] MEDS ORDERED: OXY-CONTIN10 MG PO (08:47)
[2017-07-16] MEDS ORDERED: ZOFRAN ODT4 MG PO (08:47)
== END 2017-03-19 16:18 | disposition home or self-care (01) ==
LOC: ER 12:10
DX: R10.84 Generalized abdominal pain (principal); Z96.89 Presence of other specified functional implants; C94.6 Myelodysplastic disease, not elsewhere classified; N18.9 Chronic kidney disease, unspecified; D63.1 Anemia in chronic kidney disease; Z88.0 Allergy status to penicillin; Z91.041 Radiographic dye allergy status

== ENCOUNTER 2017-03-23 16:10 | Inpatient (IN) | payer MEDICARE, BC ==
[~2017-03-23] VITALS: Ht 154.9 cm; Wt 54.8 kg
--- NOTE | 2017-04-05 07:27 | HP ---
ADMIT: 03/23/2017 RM/LOC: 630 [facility] MR#: [id number] [address] [address] [place] [address] History and Physical SEX: F AGE: 66 : 1950 DATE OF SERVICE: 03/23/2017 HISTORY OF PRESENT ILLNESS: Femi Alicea is a pleasant 66-year-old female with a history of stage 3 chronic kidney disease, GERD, osteoarthritis, anemia of chronic disease, myelodysplasia, and hypothyroidism, who presents today for a 4-day history of nausea, vomiting, anorexia, and malaise. She was recently hospitalized for a bout of pancreatitis and sepsis on 03/12/2017. During her stay, a CT scan showed a common bile duct dilatation. She was sent to [place] for an ERCP with stent placement and biopsy, which showed benign tissue. She was discharged to home. She presented to the ER at [place] with abdominal pain on 03/18/2017, where she was given IV fluids, Percocet, and then sent home. The patient states that she felt okay after leaving the hospital, but over the weekend she began to experience headaches, nausea, and vomiting. She had been taking Zofran for nausea, which was ineffective and it progressed to the point where she was unable to keep food, fluids, or medications down. She said she is extremely tired today and feels awful. She believes she is likely dehydrated and she is worried this could have an adverse effect on her kidney function as well. She said she does not know what to do and that she would like to be admitted to the hospital where she will be able to get fluids and nausea medication. She also says that she felt feverish and has had mild shortness of breath along with abdominal pain. She denies any chest pain or palpitations. She denies any change in bowel movements and believes her urine output is unchanged so far. PAST MEDICAL HISTORY: Includes pancreatitis, osteoarthritis, type 2 diabetes, hypertension, GERD, hypoparathyroidism, asthma, glaucoma, myelodysplastic syndrome, chronic kidney disease, diverticulosis, and hypokalemia. PAST SURGICAL HISTORY: Includes a cholecystectomy; colonoscopy, last colonoscopy was in 2009; has also had a tubal ligation and tonsillectomy. MEDICATIONS: Can be found in the T-sheet. ALLERGIES: INCLUDE IODINE AND PENICILLIN. PHYSICAL EXAMINATION: GENERAL: The patient is alert and oriented. VITAL SIGNS: Blood pressure 132/72, heart rate is 72, respirations 16, and temp is 99.0. HEENT: Normal inspection. Moist mucous membranes. No lesions noted. NECK: Supple. LUNGS: Clear to auscultation bilaterally. No rales or wheezes. CARDIAC: Normal rate and rhythm. No rubs, murmurs, or gallops. ABDOMEN: Soft, nondistended, but does have mild diffuse tenderness to palpation. SKIN: Has a good color. No rashes or ecchymoses noted. LABORATORY DATA: Labs are notable for hemoglobin of 10 and she saw her ADMIT: 03/23/2017 RM/LOC: 630 [facility] MR#: [id number] [address] [place] [id number] [facility] [place] [address] History and Physical SEX: F AGE: 66 : 1950 oncologist this morning which was actually out from her baseline. Other labs including electrolytes are within normal limits. Kidney function unchanged. CLINICAL IMPRESSION: 1. Persistent nausea and vomiting. 2. Dehydration. 3. Common bile duct, ampullary enlargement, status post stent and ERCP, which was done on 03/12. 4. Chronic kidney disease, possible acute kidney injury secondary to dehydration. 5. Urinary tract infection, previously grew Escherichia coli. 6. Hypokalemia. 7. Myelodysplastic syndrome. PLAN: So, the plan for Femi is to admit her for IV fluids and monitor her for 48 hours. If she has not improved by , I will consider transfer back to [place] for GI consult. We will hold off on Nephrology consult for now unless things change. We will start her on IV normal saline bolus 1 L over 4 hours and switch to half normal saline with 20 mEq of potassium chloride around has had 100 cc/hr. Diet will be clear liquid. No advance diet as tolerated by the patient. Activity as tolerated. Will also do Zofran 4 mg IV q.6 or p.r.n. for nausea and vomiting. Also draw morning labs including a CBC with diff, CMP, amylase, and lipase. With urinary tract infection, we will also do ceftriaxone 2 g IV daily and also grab daily weights on her. Do strict I's and O's, and add heparin IV b.i.d. for anticoagulation. Edenilson Laguerre, M3 Student / Daniela Nixon MD / clem JOB #: [id number] CC: Daniela Nixon, Attending Physician Daniela Nixon, Family Physician
--- NOTE | 2017-04-15 07:18 | DS ---
ADMIT: 03/23/2017 RM/LOC: 630 [facility] MR#: [id number] [address] [address] [place] [address] General Discharge Summary SEX: F AGE: 66 : 1950 ADMISSION DATE: 03/23/2017 DISCHARGE DATE: 03/25/2017 FINAL DIAGNOSES: 1. Persistent nausea and vomiting. 2. Dehydration. 3. Common bile duct ampullary enlargement status post stent placement on March 12 with ERCP. 4. Chronic kidney disease stage 3 with acute kidney injury due to dehydration. 5. Urinary tract infection Escherichia coli. 6. Hypokalemia. 7. Myelodysplastic syndrome. REASON FOR ADMISSION: The patient is a 66-year-old, female, who was hospitalized from 03/09 to 03/12, for nausea, vomiting, dehydration, and acute kidney injury and was ultimately transferred to [place] for further evaluation by Gastroenterology with an ERCP. She underwent an ERCP and had a common bile duct stent placed there. She returned home and began having increased nausea again. So ultimately readmitted for IV fluids and further evaluation. HOSPITAL COURSE: The patient was admitted and given IV fluids for rehydration, and labs were monitored. Her nausea was treated with Zofran. She also received Phenergan. Had minimal improvement over the 36 hours. She was here though also ultimately did transfer back down to [place] for further evaluation with Gastroenterology given her recent procedure. She was transferred on 03/25/2017. Please see her transfer MAR for medications on transfer. We will follow up with me after returning. Daniela Nixon MD/ clem JOB #: [id number] CC: Daniela Nixon MD, Attending Physician Daniela Nixon MD, Family Physician
[2017-05-11] MEDS ORDERED: AMBIEN DPS5 MG PO (14:46)
[2017-05-11] MEDS ORDERED: PROTONIX IV40 MG IV (14:46)
[2017-05-11] MEDS ORDERED: HEPARIN5000 UNITS SQ (14:47)
[2017-05-11] MEDS ORDERED: NORMAL SALINE FL5 ML IV (14:47)
[2017-05-11] MEDS ORDERED: PERCOCET 5-3251 EACH PO (14:48)
[2017-05-11] MEDS ORDERED: COLACE-DPS100 MG PO (14:48)
[2017-05-11] MEDS ORDERED: MAALOX DPS30 ML PO (14:48)
[2017-05-11] MEDS ORDERED: NUBAIN IV (14:49)
[2017-05-11] MEDS ORDERED: TYLENOL DPS325 MG PO (14:49)
[2017-05-11] MEDS ORDERED: NITROSTAT0.4 MG SL (14:49)
[2017-05-11] MEDS ORDERED: PHENERGAN25 MG/1 M1 IV (14:51)
[2017-05-11] MEDS ORDERED: ZOFRAN DPS4 MG/2 ML IV (14:51)
[2017-05-11] MEDS ORDERED: NORMAL SALINE IV (14:51)
[2017-07-06] MEDS ORDERED: HEPARIN10 UNITS/M IV (10:03)
[2017-07-06] MEDS ORDERED: KCL IV (10:06)
[2017-07-06] MEDS ORDERED: ATIVAN DPS2 MG/ML IV (10:07)
[2017-07-06] MEDS ORDERED: REGLAN10 MG IV (10:10)
[2017-07-16] MEDS ORDERED: SYNTHROID75 MCG PO (08:42)
[2017-07-16] MEDS ORDERED: ROCALTROL DP0.25 MCG PO (08:44)
[2017-07-16] MEDS ORDERED: HYDROXYZINE HCL10 MG PO (08:44)
[2017-07-16] MEDS ORDERED: BENZONATATE200 MG PO (08:45)
[2017-07-16] MEDS ORDERED: PHENERGAN DPS25 MG PO (08:45)
[2017-07-16] MEDS ORDERED: PROTONIX40 MG PO (08:45)
[2017-07-16] MEDS ORDERED: ULTRAM DPS50 MG PO (08:45)
[2017-07-16] MEDS ORDERED: REGLAN DPS5 MG PO (08:46)
[2017-07-16] MEDS ORDERED: VITAMIN D-32000 UNI1 PO (08:46)
[2017-07-16] MEDS ORDERED: TYLENOL DPS325 MG PO (08:46)
[2017-07-16] MEDS ORDERED: COLACE-DPS100 MG PO (08:46)
[2017-07-16] MEDS ORDERED: OXY-CONTIN10 MG PO (08:47)
[2017-07-16] MEDS ORDERED: BENTYL-DPS10 MG PO (08:47)
[2017-07-16] MEDS ORDERED: ZOFRAN ODT4 MG PO (08:47)
== END 2017-03-25 10:10 | disposition short-term general hospital (02) | DRG 683 ==
LOC: 6PED 16:10
PROVIDERS: ADMIT Family Medicine
DX: N17.9 Acute kidney failure, unspecified (principal); N39.0 Urinary tract infection, site not specified; E11.22 Type 2 diabetes mellitus with diabetic chronic kidney disease; D46.9 Myelodysplastic syndrome, unspecified; I12.9 Hypertensive chronic kidney disease with stage 1 through stage 4 chronic kidney disease, or unspecified chronic kidney disease; B96.20 Unspecified Escherichia coli [E. coli] as the cause of diseases classified elsewhere; E86.0 Dehydration; R11.2 Nausea with vomiting, unspecified; N18.3 Chronic kidney disease, stage 3 (moderate); K21.9 Gastro-esophageal reflux disease without esophagitis; M19.90 Unspecified osteoarthritis, unspecified site; E87.6 Hypokalemia; D63.8 Anemia in other chronic diseases classified elsewhere; E03.9 Hypothyroidism, unspecified; E20.9 Hypoparathyroidism, unspecified; J45.909 Unspecified asthma, uncomplicated; H40.9 Unspecified glaucoma; K57.90 Diverticulosis of intestine, part unspecified, without perforation or abscess without bleeding; Z98.890 Other specified postprocedural states

== ENCOUNTER 2017-07-04 14:24 | Inpatient (IN) | payer MEDICARE, BC ==
[~2017-07-04] VITALS: Ht 154.9 cm; Wt 62.6 kg
--- NOTE | ~2017-07-04 | DS ---
ADMIT: 07/04/2017 RM/LOC: 532 [facility] MR#: [id number] [address] [address] [place] [address] General Discharge Summary SEX: F AGE: 66 : 1950 ADMISSION DATE: 07/04/2017 DISCHARGE DATE: 07/05/2017 FINAL DIAGNOSES: 1. Acute upper abdominal pain. 2. Acute pancreatitis. 3. Pancytopenia. 4. Myelodysplastic syndrome. 5. Chronic kidney disease stage 4. 6. Vitamin D deficiency. 7. Gastroesophageal reflux disease without esophagitis. 8. Anemia of chronic kidney disease. 9. Hypothyroidism. 10.Migraine, chronic. 11.Generalized osteoarthritis. 12.Hypokalemia. REASON FOR ADMISSION: The patient was admitted on 07/04/2017 with a lot of upper abdominal pain that had developed since her biliary stent had been removed on the . Her lipase was elevated at 1734 hours, and her amylase was normal. Other LFTs were normal. Her white count was normal at 4800. HOSPITAL COURSE: The patient was admitted and IV hydrated and her potassium was replaced and Dilaudid HOUSEHOLD COORDINATOR was given for pain control along with Zofran and Reglan for nausea. She was not feeling any better in the next morning, though her lipase had normalized overnight with the fluids. At that point, I did speak to [facility] about accepting the patient for further Gastroenterology evaluation and she was transferred by ambulance that day. MEDICATIONS: On transfer: 1. Protonix 40 mg IV daily. 2. Dilaudid HOUSEHOLD COORDINATOR per protocol. 3. Ativan 0.5 mg q.6 hours p.r.n. 4. Tylenol 650 mg q.4 hours p.r.n. 5. Reglan 10 mg IV q.6 hours p.r.n. She will follow up with me when she returns home from her hospitalization in [place]. Daniela Nixon MD/ clem JOB #: [id number] CC: Daniela Nixon MD, Attending Physician Daniela Nixon MD, Family Physician
--- NOTE | ~2017-07-04 | HP ---
ADMIT: 07/04/2017 RM/LOC: 532 [facility] MR#: [id number] [address] [address] [place] [address] History and Physical SEX: F AGE: 66 : 1950 DATE OF SERVICE: CHIEF COMPLAINT: Abdominal pain. HISTORY OF PRESENT ILLNESS: This is a 66-year-old female, normally cared for by Dr. Nixon in our office, who presented to the emergency room with abdominal pain. She states about 2:00 this morning, she had a sudden onset of epigastric discomfort, kind of radiated over to her right upper quadrant. Classic for her recurrent pancreatitis. She has had multiple bouts of pancreatitis, has had ERCP with stone extraction and then the stent placement. She has had sphincterotomies. She had a stent removed back on July 01. She went home that day and did fine up until today when she developed severe abdominal pain. She has a little bit of nausea with it. She has not thrown up. She does think she maybe had some fever and chills and a couple of episodes of diarrhea for which she took Imodium and that resolved. At any rate, workup in the emergency room did reveal recurrent pancreatitis. Therefore, she is being admitted for further stabilization. PAST MEDICAL HISTORY: Remarkable for anemia of chronic disease, chronic kidney disease, myelodysplastic syndrome, recurrent pancreatitis, gastroparesis, hypothyroidism, migraine headaches, vitamin B12 deficiency, vitamin D deficiency, osteoarthritis, gastroesophageal reflux disease, and previous common bile obstruction. PAST SURGICAL HISTORY: Surgeries include hysterectomy, previous laparoscopic cholecystectomy. Multiple ERCPs for stone extractions, sphincterotomy, stent placement, and subsequent removal. Carpal tunnel surgery. Tubal ligation. Tonsil and adenoidectomy. CURRENT MEDICATIONS: Include: 1. Calcitriol 0.25 mcg daily. 2. Levothyroxine 75 mcg daily. 3. Hydroxyzine 10 mg one tablet at bedtime. 4. Pantoprazole 40 mg b.i.d. 5. Tramadol 50 mg q.6 hours p.r.n. 6. Tessalon Perles 200 mg one tab p.o. q.8 hours p.r.n. 7. Promethazine 25 mg q.6 hours p.r.n. 8. Vitamin D3 2000 units daily. ALLERGIES: PENICILLIN, MORPHINE, AND IODINE. SOCIAL HISTORY: Does not smoke or drink alcohol. Is . FAMILY HISTORY: Father with asthma, diabetes, kidney disorder, and glaucoma. Mother with coronary artery disease and asthma. One sister with breast cancer. REVIEW OF SYSTEMS: GENERAL: Maybe some fevers and chills but nothing documented. ADMIT: 07/04/2017 RM/LOC: 532 [facility] MR#: [id number] [address] [place], [place] [id number] [place] [address] History and Physical SEX: F AGE: 66 : 1950 HEENT: No headaches, blurred vision, or double vision. CARDIAC: No chest pain. PULMONARY: No shortness of breath. GI: Has had nausea but no vomiting. Has had diarrhea. : No dysuria, urgency, or frequency. ENDOCRINE: No polyuria, polydipsia. PSYCH: No depression. All others are negative. PHYSICAL EXAMINATION: VITAL SIGNS: Blood pressure is 148/77, pulse 86, respirations 16, temp 97.8. GENERAL: No acute distress. Alert, interactive, oriented. HEENT: Pupils are reactive. Conjunctivae clear. Mild drying of mucous membranes. NECK: Soft and supple. LUNGS: Clear to auscultation with normal respiratory effort. HEART: Regular rate and rhythm. ABDOMEN: Soft. It is tender in the epigastric, little bit vaguely in the right upper quadrant. No rebound or guarding. EXTREMITIES: No cyanosis. No clubbing. No edema. SKIN: No rashes. LAB/X-RAY DATA: Shows a white count of 4800, hemoglobin 8.5, platelets 91,000. Sodium 140, potassium 3.4, chloride 109, CO2 of 22, BUN 25, creatinine 2.2, glucose 122, calcium 8.2, total bilirubin is 0.4, total protein 7.8, albumin 3.2, alkaline phosphatase 122, AST 21, ALT 22, lipase 1734, corrected calcium is 8.8. ASSESSMENT: 1. Recurrent pancreatitis. 2. Chronic kidney disease. 3. Hypothyroidism. 4. Gastroesophageal reflux disease. 5. Myelodysplastic syndrome. 6. Hypokalemia. PLAN: We will admit. Keep n.p.o., IV fluids, replace potassium, Dilaudid MANAGER SUPPLY CHAIN PLANNING, and change treatment plan as hospital course dictates. Misael Johnson MD/ clem JOB #: [id number] CC: Daniela Nixon, Attending Physician ADMIT: 07/04/2017 RM/LOC: 532 [facility] MR#: [id number] [address] [place] [id number] [place] [address] History and Physical SEX: F AGE: 66 : 1950 Daniela Nixon, Family Physician
[~2017-07-04 14:24] MED LIST changes: +COLACE-DPS100 MG PO; +HEPARIN5000 UNITS SQ; +MAALOX DPS30 ML PO; +NITROSTAT0.4 MG SL; +NORMAL SALINE FL5 ML IV; +NORMAL SALINE IV; +NUBAIN IV; +PERCOCET 5-3251 EACH PO; +PHENERGAN25 MG/1 M1 IV; +PROTONIX IV40 MG IV; +ZOFRAN DPS4 MG/2 ML IV
--- NOTE | 2017-07-05 23:41 | ER ---
ADMIT: 07/04/2017 RM/LOC: ER [facility] MR#: [id number] [address] [address] [place] [address] Emergency Room Report SEX: F AGE: 66 : 1950 DATE: 07/04/2017 TIME: 1424 hours Please refer to my T-sheet for complete H and P. HISTORY OF PRESENT ILLNESS: Briefly, the patient is a 66-year-old, who comes in with abdominal pain. She has a very complex history. She had an ERCP, it has been maybe a month ago or two. She has had recurrent pancreatitis. They removed the stent that was placed just 4 days ago. She is now back in with abdominal pain, nausea, and loss of appetite. She says it feels like she has had recurrence of her pancreatitis. PHYSICAL EXAMINATION: VITAL SIGNS: Here her vital signs are stable. Blood pressure 148/77, pulse 86, respirations 16, temp 97.8, sat 99%. GENERAL: No acute distress. HEENT: Grossly normal. LUNGS: Clear. HEART: Regular. ABDOMEN: Mildly tender epigastric. No rebound, no guarding. SKIN: No rash. EMERGENCY DEPARTMENT COURSE: CBC was normal except white count 4.8, hemoglobin 8.5, platelets 91. Chemistries normal except potassium 3.4, BUN 25, glucose 122, creatinine 2.2. Her lipase was 1734. I gave her 500 mL normal saline bolus, Zofran 4 IV. We titrated Dilaudid. I talked to Dr. Lo who is generation mechanic helper for the Gastroenterology crew at [place], he suggested we keep her here n.p.o. fluids, see if we can control her here without having a transfer. The patient was amenable to that and we will admit to the hospital. ASSESSMENT: 1. Abdominal pain. 2. Acute pancreatitis, recurrent. 3. Renal insufficiency, stable. 4. Anemia, stable. PLAN: Admit to the hospital. Gabriele Corea MD/ clem JOB #: [id number] CC: Juliocesar Norman MD, Attending Physician Daniela Nixon MD, Family Physician
[2017-07-06] MEDS ORDERED: HEPARIN10 UNITS/M IV (10:03)
[2017-07-06] MEDS ORDERED: KCL IV (10:06)
[2017-07-06] MEDS ORDERED: ATIVAN DPS2 MG/ML IV (10:07)
[2017-07-06] MEDS ORDERED: REGLAN10 MG IV (10:10)
[2017-07-16] MEDS ORDERED: SYNTHROID75 MCG PO (08:42)
[2017-07-16] MEDS ORDERED: HYDROXYZINE HCL10 MG PO (08:44)
[2017-07-16] MEDS ORDERED: ROCALTROL DP0.25 MCG PO (08:44)
[2017-07-16] MEDS ORDERED: PROTONIX40 MG PO (08:45)
[2017-07-16] MEDS ORDERED: ULTRAM DPS50 MG PO (08:45)
[2017-07-16] MEDS ORDERED: PHENERGAN DPS25 MG PO (08:45)
[2017-07-16] MEDS ORDERED: BENZONATATE200 MG PO (08:45)
[2017-07-16] MEDS ORDERED: TYLENOL DPS325 MG PO (08:46)
[2017-07-16] MEDS ORDERED: COLACE-DPS100 MG PO (08:46)
[2017-07-16] MEDS ORDERED: VITAMIN D-32000 UNI1 PO (08:46)
[2017-07-16] MEDS ORDERED: REGLAN DPS5 MG PO (08:46)
[2017-07-16] MEDS ORDERED: ZOFRAN ODT4 MG PO (08:47)
[2017-07-16] MEDS ORDERED: OXY-CONTIN10 MG PO (08:47)
[2017-07-16] MEDS ORDERED: BENTYL-DPS10 MG PO (08:47)
== END 2017-07-05 09:40 | disposition short-term general hospital (02) | DRG 439 ==
LOC: ER 14:24 → 5MS 16:00
PROVIDERS: ADMIT Family Medicine
DX: K85.90 Acute pancreatitis without necrosis or infection, unspecified (principal); D61.818 Other pancytopenia; N18.4 Chronic kidney disease, stage 4 (severe); D46.9 Myelodysplastic syndrome, unspecified; E55.9 Vitamin D deficiency, unspecified; K21.9 Gastro-esophageal reflux disease without esophagitis; D63.1 Anemia in chronic kidney disease; E03.9 Hypothyroidism, unspecified; G43.909 Migraine, unspecified, not intractable, without status migrainosus; M19.90 Unspecified osteoarthritis, unspecified site; E87.6 Hypokalemia; Z82.49 Family history of ischemic heart disease and other diseases of the circulatory system

== ENCOUNTER 2017-07-11 18:42 | Inpatient (IN) | payer MEDICARE, BC ==
[~2017-07-11] VITALS: Ht 154.9 cm; Wt 62.1 kg
--- NOTE | ~2017-07-11 | HP ---
ADMIT: 07/11/2017 RM/LOC: [facility] MR#: [id number] [id number] [address] FEMI Q[place]ADA [place], [place] [id number] History and Physical SEX: F AGE: 66 : 1950 DATE OF SERVICE: REASON FOR ADMISSION: Recurrent abdominal pain, nausea, and vomiting. HISTORY OF PRESENT ILLNESS: The patient is a 66-year-old white female, who has had recurrent episodes of upper abdominal pain. She has been having a lot of trouble and saw Gastroenterology and ended up having an ERCP done twice. On the second attempt, they did find some common bile duct stones that were flushed out and then common bile duct stent was placed. She had a common bile duct stent placed with the first ERCP, I believe in February as well and had good symptom relief until they took it out. She then had recurrent abdominal pain and then when the second ERCP was done and stent was placed, she did well again for another month. She just had that stent out on July 01 and within a few days was starting to struggle with recurrent abdominal pain and nausea again. It felt just like what she had in the past. She came in here and had an initial lipase of 1734 and her amylase was elevated as well. She was having recurrent symptoms that soon after her stent was removed. We did transfer down to [facility] in [place] and she had Gastroenterology evaluated there. Unfortunately by the time she was there, her lipase was better and they did not see the elevated lipase and basically thought she was fine and kept her for couple days on pain control and then discharged her. She felt the same really once returning home, and has struggled with pain ever since. She was into the emergency room on the and had labs done that showed a normal amylase and lipase at that time and the ER doctor sent her home with a prescription for morphine to take for pain and she declined to get that filled as she really does not want to be on any strong pain medications. She has been unable to eat anything now since the . She has had frequent nausea and vomits about once a day. Has just a constant pain across the upper abdomen. It is not really worse on the right or left side, just radiates all the way around. Has some pain in her back with that as well. Had not noticed any dysuria or fevers or chills. She has been having fairly regular bowel movements given her decreased oral intake. No blood in the stools or black tarry stools. Has no appetite. Weight is down a couple pounds from when she was in on the 18 overnight here. PAST MEDICAL HISTORY: Again the patient has struggled with this recurrent abdominal pain for quite a while, at least a year since I have been taking care of her. She was evaluated again with ERCP x2 and common bile duct stents x2. Had common bile duct stones removed over the summer as well. During one of her hospitalizations, was noted to have some mild gastroparesis as well. She also has myelodysplastic syndrome and follows with Oncology for that receiving weekly Procrit injections. Has chronic kidney disease stage 3 to 4 and follows with a plc controls engineer in [place] for that. She has had chronic back pain and headaches as well. MEDICATIONS: 1. Calcitriol 0.25 mcg once daily. 2. Levothyroxine 75 mcg at bedtime. 3. Hydroxyzine 10 mg at bedtime. ADMIT: 07/11/2017 RM/LOC: 618 [facility] MR#: [id number] [address] [place] [address] History and Physical SEX: F AGE: 66 : 1950 4. Pantoprazole 40 mg b.i.d. 5. Tramadol 50 mg, one q.6 hours as needed. 6. Benzonatate 200 mg q.8 hours as needed for cough. 7. Promethazine 25 mg every 6 hours as needed for nausea. 8. Vitamin D3, 2000 units daily. ALLERGIES: INCLUDE IODINE AND IODINE-CONTAINING PRODUCTS. PENICILLIN AND MORPHINE. SOCIAL HISTORY AND FAMILY HISTORY: Remain unchanged from her H and P dated July 04. REVIEW OF SYSTEMS: CONSTITUTIONAL: No fevers or chills. HEENT: Chronic headaches but no vision changes or cold symptoms. CARDIAC: No chest pain or palpitations. RESPIRATORY: No shortness of breath or cough. GASTROINTESTINAL: As above. GENITOURINARY: She has been urinating normally with no dysuria or frequency or hematuria. MUSCULOSKELETAL: She has chronic low back pain. Mildly weak in her legs. NEUROLOGICAL: No focal numbness, tingling, or weakness. PSYCHIATRIC: She has been getting a little depressed from all of this illness. Normally has no issues with depression and anxiety though. Rest of review of systems is negative. PHYSICAL EXAMINATION: VITAL SIGNS: The patient is afebrile. Blood pressure 137/49, pulse 69, respirations 16, and sats are 98% on room air. Weight is 136 pounds. GENERAL: The patient is alert and oriented x3 and in no acute distress. HEENT: Head is atraumatic and normocephalic. Sclerae are clear. Pupils are round and reactive. Nares are patent. Oropharynx looks moist without lesions. NECK: Supple with no lymphadenopathy or thyromegaly. HEART: Regular without murmurs. LUNGS: Sound clear bilaterally. ABDOMEN: Soft, nondistended, but is tender across the entire upper abdomen. No rebound, guarding, or masses are noted though. She has normal bowel sounds throughout. EXTREMITIES: Have no edema. No posterior calf tenderness. NEUROLOGICAL: No focal or neurologic changes are noted. SKIN: Without rashes. LABORATORY DATA: White count was 3.9, hemoglobin 7.8, platelets 88. BUN 17, creatinine 1.8, glucose is 94, and potassium is 3.7. Her amylase and lipase were both within normal limits last night and again this morning. ASSESSMENT: 1. Recurrent abdominal pain with nausea and vomiting. 2. Recent pancreatitis with mild common bile duct dilatation, recent stone ADMIT: 07/11/2017 RM/LOC: 618 [facility] MR#: [id number] [address] [place] [address] History and Physical SEX: F AGE: 66 : 1950 removal and stent placement x2, most recently removed on July 01. 3. Gastroparesis. 4. Urinary tract infection. 5. Myelodysplastic syndrome. 6. Chronic kidney disease stage 3 to 4. 7. Chronic back pain and headaches. PLAN: We will try scheduling Zofran before meals and at bedtime along with a low dose erythromycin for gastroparesis. We will treat the UTI with ceftriaxone IV until we have cultures available. We will hydrate and just to continue to manage symptomatically for a few days and if not improving, we will discuss again with Gastroenterology whether transfer again would be helpful. She is on a Dilaudid CRNA for now and will continue that for another 24 hours before trying to transfer over to [facility]. Daniela Nixon MD/ clem JOB #: [id number] CC: Daniela Nixon, Attending Physician Daniela Nixon, Family Physician
[~2017-07-11 18:42] MED LIST changes: +ATIVAN DPS2 MG/ML IV; +HEPARIN10 UNITS/M IV; +KCL IV; +REGLAN10 MG IV
--- NOTE | 2017-07-15 07:01 | DS ---
ADMIT: 07/12/2017 RM/LOC: 618 [facility] MR#: [id number] [address] [address] [place] [address] Discharge Summary SEX: F AGE: 66 : 1950 ADMISSION DATE: 07/12/2017 DISCHARGE DATE: 07/14/2017 FINAL DIAGNOSES: 1. Chronic abdominal pain with acute exacerbation. 2. Recent pancreatitis with bile duct stent. That was removed on July 01. 3. Recent choledocholithiasis. 4. Gastroparesis. 5. Myelodysplastic syndrome. 6. Chronic kidney disease, stage 3-4. 7. Chronic back pain. 8. Chronic headaches. REASON FOR ADMISSION: The patient is a 66-year-old female, who presented to the emergency room with recurrent abdominal pain. She has been struggling for several days prior to getting admitted and had had one other ER visit on 07/09. She had been hospitalized at [facility] about a week prior to this admission and was just held for a couple of days and placed on nausea medication discharged. On July 01, she had her bile duct stent removed that was placed after she underwent ERCP with some common bile duct stones noted and removed. She had done well with her stent in but seems like she started having more trouble once that was taken out. Efforts at outpatient management of her nausea, vomiting and pain were unsuccessful. On admission, her amylase and lipase this visit were normal. Her prior admission her lipase had been elevated at 1700 but had gone down quickly with fluids. This admission both amylase and lipase were normal, though. CT showed no acute changes. She was admitted and started on Dilaudid for pain control with IV fluids running and Zofran and Reglan for nausea. The next day, we switched her to OxyContin 10 mg b.i.d. and stopped the Dilaudid SITE PLANNER. She was not having good pain relief with the Dilaudid and still having quite a bit of nausea as well. We also scheduled Reglan 5 mg a.c. and HS and Zofran 8 mg a.c. and HS. She did great on this regimen and ended up advancing her diet later in the day on the , which she tolerated well. By the morning of the , she denied pain or nausea and was ready for regular tray. We will try this today and get her up with PT. She has had one normal bowel movement here. If does well, we will discharge home later today. DISCHARGE INSTRUCTIONS: The patient is discharged to home. Will receive: 1. Atarax 10 mg at bedtime. 2. OxyContin 10 mg b.i.d. 3. Protonix 40 mg b.i.d. 4. Reglan 5 mg a.c. and HS. 5. Rocaltrol 0.25 mcg at bedtime. 6. Synthroid 75 mcg at bedtime. 7. Vitamin D 2000 units daily. 8. Bentyl 10 mg q.6 hours p.r.n. ADMIT: 07/12/2017 RM/LOC: 618 [facility] MR#: [id number] [id number] [address] [facility] [place] [address] Discharge Summary SEX: F AGE: 66 : 1950 9. Colace 100 mg b.i.d. p.r.n. 10.Phenergan 25 mg q.6 hours p.r.n. 11.Tessalon Perles 200 mg q.8 hours p.r.n. 12.Tylenol 650 mg q.4 hours p.r.n. 13.Ultram 50-100 mg q.6 hours p.r.n. 14.Zofran ODT 8 mg one q.6 hours p.r.n. I will follow up with her in about 5 days for a recheck, and she will call sooner if needed. She does have followup with her oncology team regarding her myelodysplastic syndrome tomorrow, and will probably receive another Procrit injection then. Daniela Nixon MD/ fermin JOB #: [id number] CC: Daniela Nixon MD, Attending Physician Daniela Nixon MD, Family Physician
[2017-07-16] MEDS ORDERED: SYNTHROID75 MCG PO (08:42)
[2017-07-16] MEDS ORDERED: HYDROXYZINE HCL10 MG PO (08:44)
[2017-07-16] MEDS ORDERED: ROCALTROL DP0.25 MCG PO (08:44)
[2017-07-16] MEDS ORDERED: ULTRAM DPS50 MG PO (08:45)
[2017-07-16] MEDS ORDERED: BENZONATATE200 MG PO (08:45)
[2017-07-16] MEDS ORDERED: PHENERGAN DPS25 MG PO (08:45)
[2017-07-16] MEDS ORDERED: PROTONIX40 MG PO (08:45)
[2017-07-16] MEDS ORDERED: REGLAN DPS5 MG PO (08:46)
[2017-07-16] MEDS ORDERED: VITAMIN D-32000 UNI1 PO (08:46)
[2017-07-16] MEDS ORDERED: TYLENOL DPS325 MG PO (08:46)
[2017-07-16] MEDS ORDERED: COLACE-DPS100 MG PO (08:46)
[2017-07-16] MEDS ORDERED: ZOFRAN ODT4 MG PO (08:47)
[2017-07-16] MEDS ORDERED: OXY-CONTIN10 MG PO (08:47)
[2017-07-16] MEDS ORDERED: BENTYL-DPS10 MG PO (08:47)
--- NOTE | 2017-07-16 20:19 | ER ---
ADMIT: 07/11/2017 RM/LOC: 618 [facility] MR#: [id number] [address] [address] [place] [address] Emergency Room Report SEX: F AGE: 66 : 1950 DATE: 07/11/2017 ADDENDUM: The patient comes into the ER because she has had chronic abdominal pain. She recently had a stent removed that was in her common bile duct on 07/01/2017. Since then, she has had abdominal pain. She was seen in our ER 2 days ago and seen by the surgeon who did the removal, Dr. Martínez. She had 2 CAT scans done, and they were both normal, but she continues to have severe pain. On physical exam, her abdomen is tender with diffuse abdominal pain. No rebound tenderness or guarding. Her hemoglobin today was 8.6, which is around normal for her. She has chronic anemia. She also has a bladder infection with 22 wbc's in her urine. I spoke with Dr. Natarajan today, and the patient spoke with Dr. Nixon earlier, and she will be admitted for abdominal pain and observation. DIAGNOSES: 1. Abdominal pain. 2. Urinary tract infection. Please see my T-sheet. EULALIO Berkowitz / Gabreile Corea MD / clem JOB #: [id number] CC: Daniela Nixon MD, Attending Physician Daniela Nixon MD, Family Physician
== END 2017-07-14 10:29 | disposition home or self-care (01) | DRG 392 ==
LOC: ER 18:42 → 6PED 20:12
PROVIDERS: ADMIT Family Medicine
DX: R10.9 Unspecified abdominal pain (principal); N18.4 Chronic kidney disease, stage 4 (severe); K31.84 Gastroparesis; D46.9 Myelodysplastic syndrome, unspecified; R11.2 Nausea with vomiting, unspecified; D64.9 Anemia, unspecified; M54.9 Dorsalgia, unspecified; G89.29 Other chronic pain; R51 Headache